=== PATIENT | male | born 1980 | race Caucasian/White ===

== ENCOUNTER 2021-07-06 16:20 | Outpatient (CLI) | payer OTHER, SELFPAY ==
--- NOTE | ~2021-07-06 | XR_ITS ---
XR lumbar spine 2-3V DATE: 07/06/2021 16:59 INDICATION: Chronic central low back pain. No injury. TECHNIQUE: AP, lateral, coned lateral lumbosacral views COMPARISON: None FINDINGS: There is mild degenerative disc disease at L6=S1. The lumbar interspaces are well preserved . There is mild chronic compression fracture and concavity of superior endplate of T12. No recent fracture or bone destruction. The lumbar pedicles are intact. The sacroiliac joints are intact. IMPRESSION: Mild degenerative disc disease at L5-S1 Chronic mild compression fracture or T12 Reviewed, dictated and finalized at location A.
[2021-07-06 17:08] LABS: Basophils Absolute Auto 0.05 K/mm3 (0.00-0.10); Basophils Percent Auto 0.8 % (0.0-1.0); Eosinophils Absolute Auto 0.16 K/mm3 (0.02-0.50); Eosinophils Percent Auto 2.5 % (1.0-6.0); Hematocrit 43.6 % (40.0-54.0); Hemoglobin 15.4 g/dL (14.0-18.0); Immature Granulocyte Absolute 0.01 K/mm3 (0.00-0.00); Immature Granulocyte Percent A 0.2 % (0.0-0.0); Lymphocytes Absolute Auto 2.32 K/mm3 (1.10-4.50); Lymphocytes Percent Auto 36.4 % (18.0-42.0); Mean Corpuscular HGB Conc 35.3 g/dL (32.0-36.0); Mean Corpuscular Hemoglobin 32.6 pg (27.0-31.0); Mean Corpuscular Volume 92.4 fL (78.0-102.0); Mean Platelet Volume 9.3 fl (8.7-11.0); Monocytes Absolute Auto 0.41 K/mm3 (0.10-0.90); Monocytes Percent Auto 6.4 % (2.0-11.0); Neutrophils Absolute Auto 3.4 K/mm3 (1.7-7.2); Neutrophils Percent Auto 53.7 % (50.0-70.0); Platelet Count Result 261 K/mm3 (150-420); Red Blood Count 4.72 M/mm3 (4.70-6.10); Red Cell Distribution Width 12.4 % (11.6-14.4); White Blood Count 6.4 K/mm3 (4.8-10.8)
[2021-07-06 17:19] LABS: Hemoglobin A1C 5.7 % (<5.7)
[2021-07-06 17:20] LABS: Alanine Aminotransferase 74 U/L (16-63); Albumin Level 4.3 g/dL (3.4-5.0); Alkaline Phosphatase 64 U/L (46-116); Anion Gap 8 mmol/L (8-16); Aspartate Amino Transferase 30 U/L (15-37); Bilirubin,Total 0.6 mg/dL (0.00-1.00); Blood Urea Nitrogen 18 mg/dL (7-18); Calcium 9.2 mg/dL (8.5-10.1); Carbon Dioxide 28 mmol/L (21-32); Chloride 102 mmol/L (98-108); Cholesterol 222 mg/dL (0-200); Estimated Glomerular Filt Rate > 60; Glucose 86 mg/dL (70-99); HDL Direct 27 mg/dL (40-60); LDL Cholesterol Calculated 163 mg/dL (<130); Osmolality Calculated 286 mOsm/kg (285-295); Sodium 138 mmol/L (136-145); Total Protein 7.4 g/dL (6.4-8.2); Triglycerides 161 mg/dL (0-150)
== END 2021-07-06 16:21 | disposition home or self-care (01) ==
LOC: CHSIMG 16:26
PROVIDERS: PCP Family Medicine; Visit Provider Family Medicine
DX: M54.50 Low back pain, unspecified (principal); R73.9 Hyperglycemia, unspecified; Z13.220 Encounter for screening for lipoid disorders
CPT/HCPCS: 36415; 72100; 80053; 80061; 83036; 85025

== ENCOUNTER 2021-07-17 13:58 | Outpatient (CLI) | payer OTHER, SELFPAY ==
--- NOTE | ~2021-07-17 | XR_ITS ---
EXAMINATION: XR wrist RT min 3V DATE: 07/17/2021 14:09 INDICATION: Right wrist pain. TECHNIQUE: 4 views right wrist were obtained. COMPARISON: None. FINDINGS: Bone alignment is normal. No fracture. There is mild osteoarthritis of first carpometacarpa l joint and first metacarpophalangeal joint. IMPRESSION: 1. Mild polyarticular osteoarthritis. Reviewed, dictated and finalized at location B.
== END 2021-07-17 13:59 | disposition home or self-care (01) ==
PROVIDERS: PCP Family Medicine; Visit Provider Orthopaedic Surgery
DX: M25.531 Pain in right wrist (principal); M19.031 Primary osteoarthritis, right wrist
CPT/HCPCS: 73110

== ENCOUNTER 2021-08-08 15:48 | Outpatient (CLI) | payer OTHER, SELFPAY ==
--- NOTE | ~2021-08-08 | MR_ITS ---
EXAMINATION: MR thoracic spine wo con DATE: 08/08/2021 16:52 INDICATION: Low back pain. TECHNIQUE: Magnetic resonance imaging (MRI) of the thoracic spine was performed without intravenous c ontrast. Sagittal localizer T1-weighted FSE of the cervical spine was obtained. Thoracic spine sequen demetri included sagittal T2-weighted FSE, sagittal T1-weighted FSE, sagittal T2-weighted FS FSE, and axi al T2-weighted FSE. COMPARISON: Lumbar spine radiographs 07/06/2021 FINDINGS: There is 4 degrees levocurvature of cervicothoracic spine. There is a chronic compression f racture of T12 with 1/5 loss of height. There is mildly decreased disc height at T5-T6. There is mild to moderate facet joint osteoarthritis at multiple levels. At T6-T7, there is a left foraminal protr usion. There is mild neural foraminal stenosis on the right at T1-T2 and T3-T4 and the left at T1-T2 and T6-T7. No central canal stenosis. The spinal cord signal intensity is normal. IMPRESSION: 1. Mild thoracic spondylosis. Reviewed, dictated and finalized at location E.
--- NOTE | ~2021-08-08 | MR_ITS ---
EXAMINATION: MR lumbar spine wo con DATE: 08/08/2021 16:52 INDICATION: Low back pain. TECHNIQUE: Magnetic resonance imaging (MRI) of the lumbar spine was performed without intravenous con trast. Sequences included sagittal T2-weighted FSE, sagittal T2-weighted FS FSE, sagittal T1-weighted FSE, and axial T2-weighted FSE. COMPARISON: Lumbar spine radiographs 07/06/2021 FINDINGS: There is 4 degrees levocurvature of lumbar spine. There is a chronic compression fracture o f T12 with 1/5 loss of height. There is moderately decreased disc height at L5-S1 with endplate remod eling. There is a compression fracture of inferior endplate of L5 with less than 1/5 loss of height w ith low signal fracture line and bone marrow edema. The distal spinal cord signal intensity is normal . The conus medullaris is at L1. The following disc levels are specifically discussed: L1-L2: The disc does not extend beyond the endplate margin. There is mild bilateral facet joint osteo arthritis. There is no neural foraminal stenosis. There is no central canal stenosis. L2-L3: The disc does not extend beyond the endplate margin. There is mild bilateral facet joint osteo arthritis. There is no neural foraminal stenosis. There is no central canal stenosis. L3-L4: There is a left foraminal protrusion. There is mild left facet joint osteoarthritis. There is mild left neural foraminal stenosis. There is no central canal stenosis. L4-L5: There is a left foraminal protrusion. There is no facet joint osteoarthritis. There is mild le ft neural foraminal stenosis. There is no central canal stenosis. L5-S1: The disc is bulging and has an annular fissure. There is mild bilateral facet joint osteoarthr itis. There is mild right and moderate left neural foraminal stenosis. There is mild central canal st enosis. IMPRESSION: 1. L5 compression fracture with less than 1/5 loss of height, likely subacute. 2. Moderate lower lumbar spondylosis. Reviewed, dictated and finalized at location E.
== END 2021-08-08 15:49 ==
PROVIDERS: PCP Family Medicine; Visit Provider Family Medicine
DX: M54.50 Low back pain, unspecified (principal); M47.814 Spondylosis without myelopathy or radiculopathy, thoracic region; M47.816 Spondylosis without myelopathy or radiculopathy, lumbar region; M48.56XA Collapsed vertebra, not elsewhere classified, lumbar region, initial encounter for fracture
CPT/HCPCS: 72146; 72148

== ENCOUNTER 2023-05-05 08:57 | Emergency (ER) | payer OTHER, SELFPAY ==
[2023-05-05 09:02] VITALS: BP 145/87; PULSE 76; RESP 16; TEMP 36.4; O2SAT 100
--- NOTE | 2023-05-05 09:35 | ED.URI ---
HPI - URI/Sore Throat General Chief Complaint: Upper Respiratory Infection Stated Complaint: Sore Throat Source: patient, RN notes reviewed and old records reviewed Mode of arrival: ambulatory Limitations: no limitations History of Present Illness HPI Narrative: 43 year old male presents to [facility] care with complaints of 2 week duration of sore throat with some discomfort also now to his right ear, Patient denies any sinus congestion or drainage or any sinus pressure or cough. Ptient reports that he has been taking Tylenol and Ibuprofen for his discomfort. Patient reports that he has had tonsillectomy as child, no known ill contacts. MD elicited complaint: sore throat and other (right ear discomfort) Onset (ago): week(s) (2) Pain scale (0-10): 2 Able to tolerate fluids by mouth: Yes Treatments prior to arrival: acetaminophen and ibuprofen Related Data Allergies Allergy/AdvReac Type Severity Reaction Status Date / Time No Known Allergies Allergy Verified 05/05/23 09:46 Review of Systems Review of Systems: CONSTITUTIONAL: Denies malaise, chills, sweats, or fever. EYES: Denies visual changes, redness, or discharge. ENT: Reports no rhinorrhea, congestion,or sinus pain,right otalgia and sore throat. CARDIOVASCULAR: Denies chest pain, palpitations, or edema. RESPIRATORY: Reports no cough.? Denies dyspnea. GASTROINTESTINAL: Denies abdominal pain, nausea, vomiting, diarrhea SKIN: Denies rash or itching. MUSCULOSKELETAL: Denies myalgia. NEUROLOGIC: Denies headache. All systems reviewed & are unremarkable except as noted in HPI and below PMFSH Past Medical History Medical History (Updated 05/05/23 @ 09:45 by Kimber Cottrell NP) Ganglion, right wrist Surgical History Surgical History (Updated 05/05/23 @ 09:42 by Kimber Cottrell NP) History of hand surgery Left ganglion cyst removal in approx 2012 per patient questionnaire History of tonsillectomy Family History Family History (Updated 07/17/21 @ 14:45 by Natali Rosales) Other Arthritis Diabetes mellitus Hypertension Ovarian cancer Social History Social History (Updated 07/17/21 @ 14:47 by Natali Rosales) Smoking packs per day: 1 Smoking cigarettes per day: 20.0 Years smoked: 20 Smoking pack-years: 20.00 Smoking status: Current every day smoker Tobacco type: cigarettes Alcohol intake: current Substance use: never Substance use type: does not use Living arrangements: with family Occupation/Education: occupation 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 There is no relevant family history pertinent to the presenting complaint Exam Narrative: GENERAL: Well-appearing, well-nourished, and in no acute distress. HEAD: Normocephalic EYES: PERRLA, conjunctivae clear ENT: Nares clear, turbinates edematous and erythematous, clear discharge. Mucous membranes moist. TM pearly so with dull light reflex bilaterally; no tragal tenderness. Oropharynx erythematous without lesions. Tonsils not present and throat without exudate, no drooling, no hoarseness, no trismus, uvula midline. NECK: Supple. lymphadenopathy CHEST: Clear to auscultation, breath sounds equal. No wheezing, rhonchi, rales, or stridor. No respiratory distress, speaks in full sentences. no cough noted SAO2 100% on room air HEART: Regular rate and rhythm. No murmur heard. SKIN: Warm, dry, no rash. NEURO: Alert and oriented x3. PSYCH: Normal mood and affect Course Course Emergency Course: Patient is aware of diagnosis, understands and agrees to treatment plan.? Anticipatory guidance given.? Patient agrees to follow-up as directed and is aware of reasons to seek care at the emergency department. Portions of this record may have been created with voice recognition software Level of Care:
== END 2023-05-05 09:50 | disposition home or self-care (01) ==
PROVIDERS: Emergency Provider Registered Nurse
DX: J02.0 Streptococcal pharyngitis (principal); F17.210 Nicotine dependence, cigarettes, uncomplicated
CPT/HCPCS: 87880; 99213; G0463

== ENCOUNTER 2023-07-01 15:49 | Outpatient (CLI) | payer OTHER, SELFPAY ==
--- NOTE | ~2023-07-01 | US_ITS ---
EXAMINATION: US thyroid DATE: 07/01/2023 16:14 INDICATION: Hyperthyroidism TECHNIQUE: Multiple ultrasound images of the thyroid were obtained. COMPARISON: None. FINDINGS: The right thyroid lobe measures 5.5 x 3.2 x 2.4 cm. The left thyroid lobe measures 5.2 x 2.2 x 1.9 c m. And 7 mm wider than tall solid hypoechoic nodule with ill-defined margins and without echogenic f oci in the left thyroid lobe. (TI-RADS 4, moderately suspicious , FNA if >=1.5 cm, annual followup is >=1 cm). There is a 6 mm wider than tall solid hypoechoic nodule with peripheral shadowing rim calci fication in the inferior left thyroid lobe, also TI RADS 4. 11 mm anechoic cystic TI RADS 1 nodule in the mid right thyroid lobe. There is a wider than tall solid isoechoic nodule with smooth to ill-def ined margins and without echogenic foci in the inferior right thyroid measuring up to 2.6 cm in maxim al diameter (TI-RADS 3, mildly suspicious , FNA if >=2.5 cm, annual followup is >=1.5 cm). Edema sugg ested with coarsened echotexture throughout the surrounding thyroid. IMPRESSION: 1. Multinodular goiter. Recommend ultrasound-guided fine-needle aspiration of the 2.6 similar TI RADS 3 right thyroid nodule. Reviewed, dictated and finalized at location A. IMPRESSION: 1. Multinodular goiter. Recommend ultrasound-guided fine-needle aspiration of t he 2.6 similar TI RADS 3 right thyroid nodule.
== END 2023-07-01 15:50 ==
PROVIDERS: PCP Family Medicine; Visit Provider Family Medicine
DX: E03.9 Hypothyroidism, unspecified (principal); E04.2 Nontoxic multinodular goiter
CPT/HCPCS: 76536

== ENCOUNTER 2023-08-09 12:33 | Outpatient (CLI) | payer OTHER, SELFPAY ==
--- NOTE | ~2023-08-09 | US_ITS ---
EXAMINATION: US FNA w image guidance DATE: 08/09/2023 13:21 INDICATION: Multinodular goiter. TECHNIQUE: The procedure and its benefits and risks were discussed with the patient. Risks specifically discusse d included bleeding. The patient verbalized understanding of the risks and agreed to proceed. The nec k was prepped and draped in the usual sterile manner. 1% lidocaine was used for local anesthesia. 6 passes were made with a 25G needle into the lesion under ultrasound guidance. There were no immedia te complications. FINDINGS: Grayscale ultrasound images demonstrate needles advanced into a 2.6 cm nodule in inferior right thyro id lobe for biopsy. IMPRESSION: 1. Ultrasound-guided fine needle aspiration of a right thyroid nodule. Reviewed, dictated and finalized at location A.
== END 2023-08-09 12:34 | disposition home or self-care (01) ==
PROVIDERS: PCP Family Medicine; Visit Provider Registered Nurse
DX: E04.2 Nontoxic multinodular goiter (principal)
CPT/HCPCS: 10005; 88172; 88173; 88305